=== PATIENT | male | born 1965 | race Caucasian/White ===

== ENCOUNTER 2018-02-20 06:44 | Day surgery (SDC) | payer BC ==
[2018-02-20] MEDS ORDERED: DEMEROL 50 MG IJ ONE ×2 (06:45)
[2018-02-20] MEDS ORDERED: VERSED 5 MG/5 ML IV ONE (06:45)
[2018-02-20] MEDS ORDERED: Lactated Ringers 1,000 ML IV ONE (07:34)
--- NOTE | 2018-02-20 08:13 | HP ---
DATE: 02/20/18 ANTICIPATED PROCEDURE: 1. EGD. HISTORY OF PRESENT ILLNESS: Patient has had symptoms of reflux for about a year. He has had some treatment. He has had some improvement. He takes 40 mg Prilosec PO bid. It is not sure how much is reflux and how much might possibly have been an ulcer. It really got to where he couldn't hardly eat anything. He is also taking a fair amount of nicotine gum for coming off of chewing tobacco. He has not had an evaluation for reflux to date. PAST MEDICAL HISTORY: ALLERGIES: PENICILLIN. CURRENT MEDICATIONS: Propecia. SURGERIES: Hydrocele. SOCIAL HISTORY: Negative. FAMILY HISTORY: Negative. REVIEW OF SYSTEMS: Negative. PHYSICAL EXAMINATION: Vital signs normal. CHEST: Clear. COR: Regular. IMPRESSION: 1. PATIENT HAVING UPPER ABDOMINAL SYMPTOMS EITHER REFLUX OR ULCER DISEASE OR BOTH. PLAN: EGD.
[2018-02-20] MEDS ORDERED: Lactated Ringers 1,000 ML IV SCH (08:30)
[2018-02-20 09:23] VITALS: PULSE 58; O2SAT 97
[2018-02-20 09:50] VITALS: BP 114/66
--- NOTE | 2018-02-24 08:57 | OP ---
PROCEDURE DATE/TIME: 02/20/2018 0840 PREOPERATIVE DIAGNOSIS: Epigastric pain, symptoms of reflux, progressive in reflux. SURGEON: Dr. Prescott FINE ARTS PACKER: Dr. Smith PROCEDURE: Esophagogastroduodenoscopy with cold biopsy of stomach x 2, one for pathology, one for CLOtest. FINDINGS: Grade I/III gastroesophageal reflux disease. No hiatal hernia. HISTORY: The patient has had progressive symptoms. He is on medication. He has been seen by Dr. Frost not too long ago. He has recently abstained from tobacco and caffeine and coffee. DESCRIPTION OF PROCEDURE: He was taken to the endoscopy suite, placed in the left lateral decubitus position. Maximal oral view was obtained. The epiglottis, anterior and posterior surfaces were normal. The glottis was normal. Recesses were both normal. Pharyngoesophageal junction normal. Esophagus cannulated. Esophagus normal down to the esophagogastric junction. There was just grade I/III gastroesophageal reflux disease but he has been on substantial medication. There was no hiatal hernia. No varices. Fundus, body, antrum normal. Curve Saw Operator biopsy for pathology, personal financial representative biopsy for CLOtest. Pylorus satisfactory. Duodenal bulb, keyhole view was excellent. Internal view was satisfactory. Second portion satisfactory. Ampulla was no specifically visible but the second portion of the duodenum did not have any visible lesions. Scope was then withdrawn, looped upon itself. No hiatal hernia. Scope withdrawn. Again, grade I/III gastroesophageal reflux disease. The cords and upper structures were again visualized and nothing was present. The patient tolerated the procedure satisfactorily. No changes on his medications.
== END 2018-02-20 10:03 | disposition home or self-care (01) ==
LOC: SDC 06:44
PROVIDERS: ATTEND Surgery
DX: R10.13 Epigastric pain (principal); K21.9 Gastro-esophageal reflux disease without esophagitis
CPT/HCPCS: 88305; J2175; J2250